=== PATIENT | female | born 1970 ===

== ENCOUNTER 2017-04-10 23:07 | Emergency (ER) | payer MEDICAID ==
[2017-04-10 23:19] VITALS: BP 147/90; PULSE 88; RESP 18; TEMP 98; O2SAT 100
--- NOTE | 2017-04-10 23:40 | ED PDOC ---
HPI: General Adult Time Seen by Provider: 04/10/17 23:23 Chief Complaint (Nursing): Weakness/Neurological Deficit Chief Complaint (Provider): facial pain History Per: Patient History/Exam Limitations: no limitations Onset/Duration Of Symptoms: Hrs (8) Current Symptoms Are (Timing): Still Present Additional History Per: Patient, Family Additional Complaint(s): 47 y/o female no past medical history presents with left-sided facial pain x 8 hours. Patient notes pain started in neck, since traveled to left side of face from top of head to jaw. Denies fever, dizziness, extremity numbness/weakness, vision changes, nasal congestion, dental pain, chest pain, shortness of breath, palpitations. Past Medical History Reviewed: Historical Data, Nursing Documentation, Vital Signs Vital Signs: Last Vital Signs Temp 98 F 04/10/17 23:15 Pulse 88 04/10/17 23:15 Resp 18 04/10/17 23:15 BP 147/90 04/10/17 23:15 Pulse Ox 100 04/10/17 23:40 - Medical History PMH: No Chronic Diseases - Surgical History Surgical History: Cholecystectomy - Family History Family History: States: Unknown Family Hx - Living Arrangements Living Arrangements: With Family - Social History Current smoker - smoking cessation education provided: No - Allergies Allergies/Adverse Reactions: Allergies Allergy/AdvReac Type Severity Reaction Status Date / Time No Known Allergies Allergy Verified 04/10/17 23:13 Review of Systems ROS Statement: Except As Marked, All Systems Reviewed And Found Negative Neurological: Positive for: Headache (facial pain) Physical Exam - Reviewed Nursing Documentation Reviewed: Yes Vital Signs Reviewed: Yes - Physical Exam Appears: Positive for: Well, Non-toxic, No Acute Distress Head Exam: Positive for: ATRAUMATIC, NORMAL INSPECTION, NORMOCEPHALIC Skin: Positive for: Normal Color Eye Exam: Positive for: Normal appearance, EOMI, PERRL ENT: Positive for: Normal ENT Inspection Cardiovascular/Chest: Positive for: Regular Rate, Rhythm Respiratory: Positive for: Normal Breath Sounds Gastrointestinal/Abdominal: Positive for: Normal Exam Back: Positive for: Normal Inspection Extremity: Positive for: Normal ROM Neurologic/Psych: Positive for: Alert, Oriented. Negative for: Motor/Sensory Deficits - Laboratory Results Result Diagrams: 04/10/17 23:56 04/10/17 23:56 - ECG O2 Sat by Pulse Oximetry: 100 - CT Scan/US CT head Other Rad Studies (CT/US): Read By Radiologist, Radiology Report Reviewed Other Rad Interpretation: no acute findings - Progress ED Course And Treament: labs, CT head, tylenol PO On re-eval, patient states pain improved. Patient/daughter educated on findings, discharged with rx Naproxen. Advised follow up PMD 2-3 days. Return to ED for worsening/concerning symptoms. Disposition - Clinical Impression Clinical Impression: Facial pain - Patient ED Disposition Is Patient to be Admitted: No Counseled Patient/Family Regarding: Studies Performed, Diagnosis, Need For Followup, Rx Given - Disposition Referrals: Maddy Santamaria MD [Primary Care Provider] - Disposition: Routine/Home Disposition Time: 02:20 Condition: IMPROVED
[2017-04-11 00:03] LABS: BASO % 0.6 % (0.0-2.0); EOS # 0.1 K/uL (0.0-0.7); EOS % 1.9 % (0.0-4.0); HEMATOCRIT 34.6 % (34.0-47.0); LYMPH # 2.8 K/uL (1.0-4.3); LYMPH % 51.1 % (20.0-40.0); MEAN CELL VOLUME 88.3 fl (81.0-99.0); MEAN CORPUSCULAR HEMOGLOBIN 28.7 pg (27.0-31.0); MEAN CORPUSCULAR HGB CONC 32.5 g/dL (33.0-37.0); MEAN PLATELET VOLUME 7.7 fl (7.2-11.7); MONO # 0.6 K/uL (0.0-0.8); MONO % 11.2 % (0.0-10.0); NEUT # 1.9 K/uL (1.8-7.0); NEUT % 35.2 % (50.0-75.0); NRBC % 0.1 % (0.0-0.0); RED CELL DISTRIBUTION WIDTH 13.5 % (11.5-14.5); WHITE BLOOD COUNT 5.5 K/uL (4.8-10.8)
--- NOTE | 2017-04-11 00:13 | CT ---
EXAM: CT Head Without Intravenous Contrast CLINICAL HISTORY: 47 years old, female; Pain; Headache; Additional info: Left head/facial pain TECHNIQUE: Axial computed tomography images of the head/brain without intravenous contrast. This CT exam was performed using one or more of the following dose reduction techniques: automated exposure control, adjustment of the mA and/or kV according to patient size, and/or use of iterative reconstruction technique. Coronal and sagittal reformatted images were created and reviewed. EXAM DATE/TIME: Exam ordered 04/10/2017 11:34 PM COMPARISON: No relevant prior studies available. FINDINGS: Brain: There is no mass effect. No midline shift. Oneil-white differentiation is maintained. No hemorrhage. No edema. Ventricles: Unremarkable. No ventriculomegaly. Bones/joints: Unremarkable. No acute fracture. Soft tissues: Unremarkable. Sinuses: there is minimal mucoperiosteal disease in the right sphenoid. No acute sinusitis. Mastoid air cells: Unremarkable as visualized. No mastoid effusion. Other findings: No previous for comparison. IMPRESSION: No hemorrhage, mass effect, or midline shift. Paranasal sinuses and mastoids as above, noting minimal disease in the right sphenoid. No imaging explanation for the reported symptoms on noncontrast head CT.No abnormality suspicious for acute stroke by noncontrast head CT. If there is clinical suspicion for stroke, please note that other modalities are considered to be more sensitive than noncontrast head CT.
[2017-04-11 00:38] LABS: ALB/GLOB RATIO 1.2 (1.0-2.1); ALKALINE PHOSPHATASE 54 U/L (38-126); ALT/SGPT 29 U/L (9-52); AST/SGOT 21 U/L (14-36); BILIRUBIN,TOTAL 0.3 mg/dl (0.2-1.3); BLOOD UREA NITROGEN 13 mg/dl (7-17); CALCIUM 9.6 mg/dL (8.4-10.2); CARBON DIOXIDE 25 mmol/L (22-30); CHLORIDE 102 mmol/L (98-107); GFR AFRICAN-AMERICAN > 60; GLUCOSE,RANDOM 112 mg/dL (65-105); POTASSIUM 3.3 MMOL/L (3.6-5.0); SODIUM 138 mmol/l (132-148); TOTAL PROTEIN 8.3 G/DL (6.3-8.2)
--- NOTE | 2017-04-19 07:49 | CARD ---
APPROVED REPORT EKG Measurement Heart [id number] ME [id number] [id number] <Conclusion> Normal sinus rhythm Nonspecific ST and T wave abnormality Abnormal ECG
== END 2017-04-11 01:00 | disposition home or self-care (01) ==
LOC: H.ER 23:07
DX: R51 Headache (principal); Z71.6 Tobacco abuse counseling